=== PATIENT | female | born 2000 | race Caucasian/White ===

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

== ENCOUNTER 2019-10-07 18:33 | Emergency (ER) | payer OTHER ==
[2019-10-07 18:42] VITALS: BMI 26.9
--- NOTE | 2019-10-07 20:01 | PDOC ---
Documentation entered by Jennifer Panchal SCRIBE, acting as scribe for Mamie Nieto MD. Mamie Nieto MD: This documentation has been prepared by the Erik gutierrez Xhesika, SCRIBE, under my direction and personally reviewed by me in its entirety. I confirm that the documentation accurately reflects all work, treatment, procedures, and medical decision making performed by me. Attending Attestation - Resident Resident Name: SudheerdeliocarolaJasonSaul - ED Attending Attestation I have performed the following: I have examined & evaluated the patient, The case was reviewed & discussed with the resident, I agree w/resident's findings & plan, Exceptions are as noted - HPI HPI: 10/07/19 19:38 The patient is a 18y/o F, 20 weeks , , with no PMH who presents to the ED from clinic for D&C. Pt was seen by OBGYN (Dr. Daily) who did a US and was told there was no heart rate and was referred to the ER. Pt denies any vaginal bleeding or discharge. Pt reports abdominal cramping. Allergies: NKDA OBGYN: Dr. Daily - Physicial Exam PE: 10/07/19 19:46 wnwd 18 yo female was referred to ED from urgent care for D and C for demise at 20 weeks head ncat neck supple lungs cta b/l cvs [id number] abdomen no rebound skin warm and dry' extremities no edema,no erythema neuro axox3,ambulatory - Medical Decision Making 10/07/19 20:00 Dr Rivers has been paged 10/07/19 20:21 Dr Fernandez does not do D and E and the patient was referred to [facility] Patient does not have fever or chills ,she does not have nausea, vomiting or vaginal bleeding at this time Impression demise during second trimester Plan we will follow-up at [facility]CEPTION[facility] department Discharge - Discharge Information Problems reviewed: Yes Clinical Impression/Diagnosis: demise Condition: Fair - Follow up/Referral - Patient Discharge Instructions Patient Printed Discharge Instructions: Miscarriage Additional Instructions: You came into the ED for a D&C because of demise. We spoke to your OBGYN Dr. Daily who does not do D&C so you were referred to [facility] [phone]. You had no bleeding, active contractions, or emergent symptoms so you were discharged. If you have any: - vaginal bleeding - contractions - SOB - Chest pain - any emergent sxs. If you think you have an emergency please call for medical help right away. - Post Discharge Activity
--- NOTE | 2019-10-07 20:05 | PDOC ---
History of Present Illness - General Chief Complaint: Pain Stated Complaint: 19 WEEKS , NO HEART BEAT Time Seen by Provider: 10/07/19 19:33 - History of Present Illness Initial Comments: 10/07/19 19:56 18 yo with elective at 15 presents to the ED for D&C. Pt explains that yesterday at her 20 week check up pt was notified by Dr. Daily that their was no heart rate with close cervix. She was then directed to get a D&C. Pt tried to call 2 clinics who stated they will not do it because do not know how long baby had no heart rate. Pt then consulted Dr. Daily who stated that she should come to [facility] for D&C. Pt last check up was 12 weeks were baby was alive. Pt believes she felt baby kicked last week. Pt does have associated symptoms of cramps which has been going on for three weeks, mild swelling of lower ext for 1 week, and some mild back pain for 1 week. Pt denies contractions, any bleeding, or any pain anywhere. Pt denies fevers, chills, SOB, Chest pain, pain with urination or frequency, or any change in bowel movements. PMH: Denies meds: denies PSH: D&E Allergies: NKA Social: No smoking, drugs, or alcohol. Lives with mother Past History - Medical History Allergies/Adverse Reactions: Allergies Allergy/AdvReac Type Severity Reaction Status Date / Time No Known Allergies Allergy Verified 10/07/19 18:42 Home Medications: Ambulatory Orders Cephalexin [Keflex] 500 mg PO BID 7 Days #14 capsule 07/04/19 Doxylamine Succinate/Vit B6 [Melina Rios 10-10 mg Tablet] 2 each PO BID PRN #30 tablet. 07/04/19 COPD: No - Immunization History Immunization Up to Date: Yes - Psycho-Social/Smoking History Smoking Status: No Smoking History: Never smoked Have you smoked in the past 12 months: No Number of Cigarettes Smoked Daily: 0 Information on smoking cessation initiated: Yes - Substance Abuse Hx (Audit-C & DAST Scrn) How often the patient has a drink containing alcohol: Never Score: In Men: 4 or > Positive; In Women: 3 or > Positive: 0 Screen Result (Pos requires Nsg. Audit-10AR): Negative In the last yr the pt used illegal drug/Rx for NonMed reason: No Score: Yes response is considered Positive: 0 Screen Result (Positive result requires Nsg. DAST-10): Negative Review of Systems - Review of Systems Comments:: 10/07/19 20:09 GENERAL/CONSTITUTIONAL: No fever or chills. No weakness. HEAD, EYES, EARS, NOSE AND THROAT: No change in vision. No ear pain or discharge. No sore throat. CARDIOVASCULAR: No chest pain or shortness of breath RESPIRATORY: No cough, wheezing, or hemoptysis. GASTROINTESTINAL: No nausea, vomiting, diarrhea or constipation. GENITOURINARY: No dysuria, frequency, or change in urination. MUSCULOSKELETAL: No joint or muscle swelling or pain. No neck or back pain. SKIN: No rash NEUROLOGIC: No headache, vertigo, loss of consciousness, or change in strength/sensation. ENDOCRINE: No increased thirst. ALLERGIC/IMMUNOLOGIC: No hives or skin allergy. *Physical Exam - Vital Signs Last Vital Signs Temp Pulse Resp BP Pulse Ox 98.8 F 89 19 123/57 L 100 10/07/19 18:39 10/07/19 18:39 10/07/19 18:39 10/07/19 18:39 10/07/19 18:39 - Physical Exam 10/07/19 20:10 GENERAL: Awake, alert, and fully oriented, in no acute distress HEAD: normocephalic atraumatic EYES: PERRLA, EOMI, sclera anicteric, conjunctiva clear ENT: Auricles normal inspection, hearing grossly normal, nares patent, oropharynx clear without exudates. NECK: Normal ROM, supple, no lymphadenopathy, JVD, or masses LUNGS: No distress, speaks full sentences, clear to auscultation bilaterally HEART: Regular rate and rhythm, normal S1 and S2, no murmurs, rubs or gallops, peripheral pulses normal and equal bilaterally. ABDOMEN: Soft, nontender, normoactive bowel sounds. No guarding, no rebound. No masses EXTREMITIES : Normal inspection, Normal range of motion, Mild edema up to ankles. No clubbing or cyanosis. NEUROLOGICAL: Cranial nerves II through XII grossly intact. Normal speech, normal gait, no focal sensorimotor deficits SKIN: Warm, Dry, normal turgor, no rashes or lesions noted 5 Medical Decision Making - Medical Decision Making 10/07/19 20:29 18 yo female coming in for D&C due to demise at around 20 weeks. Called pt OBGYN who Dr. Ocampo who stated that pt misunderstood and that she needed to go to a tertiary care center for D&C at 20 weeks. Pt was referred to [facility]. Pt was also told if they do not do it to go to [facility]. Discharge - Discharge Information Problems reviewed: Yes Clinical Impression/Diagnosis: demise Condition: Fair - Follow up/Referral - Patient Discharge Instructions Patient Printed Discharge Instructions: Miscarriage Additional Instructions: You came into the ED for a D&C because of demise. We spoke to your OBGYN Dr. Daily who does not do D&C so you were referred to [facility] [phone]. You had no bleeding, active contractions, or emergent symptoms so you were discharged. If you have any: - vaginal bleeding - contractions - SOB - Chest pain - any emergent sxs. If you think you have an emergency please call for medical help right away. - Post Discharge Activity
[2019-10-07 20:19] VITALS: BP 89/58; PULSE 79; TEMP 98.7
== END 2019-10-07 20:33 | disposition home or self-care (01) ==
LOC: JER 18:33
DX: O36.4XX0 Maternal care for intrauterine death, not applicable or unspecified (principal); Z3A.20 20 weeks gestation of pregnancy
CPT/HCPCS: 99283-25

== ENCOUNTER 2019-11-05 16:40 | Emergency (ER) | payer OTHER ==
[2019-11-05 16:44] VITALS: BP 129/95; PULSE 81; TEMP 98.2; BMI 27.3
--- NOTE | 2019-11-05 16:59 | PDOC ---
Attending Attestation - Resident Resident Name: Emily Polanco - ED Attending Attestation I have performed the following: I have examined & evaluated the patient, The case was reviewed & discussed with the resident, I agree w/resident's findings & plan, Exceptions are as noted - HPI HPI: 11/14/19 10:52 Nausea and vomiting since drinking binge last night. No abdominal pain or diarrhea. No fever/chills. Past medical history is negative for significant GI disease or surgery. - Physicial Exam PE: 11/14/19 10:53 Vital signs are normal. There is no fever Abdomen is nondistended. Bowel sounds are normal. Completely soft, nontender to palpation despite vigorous examination of all 4 quadrants. No CVAT. No pallor or icterus. HEENT normal Neck supple without any mass or nodes Lungs clear with full breath sounds bilaterally. No chest wall or rib cage tenderness or deformity CV S1-S2 normal without murmur rub or gallop pulses full and symmetric no JVD or edema no bruits regular 80/min Extremities no CCE Skin clear, no rash, adequate turgor, mucous membranes 11/14/19 10:55 CBC with a white count of 18.4, normal H&H. Chemistries show small elevations of AST and ALT, possibly from consistent overuse of alcohol. Glucose is mildly elevated as well, but the remainder of the chemistry panel is negative. Urinalysis is clear except for 2+ protein. test is negative. 11/14/19 10:56 - Medical Decision Making 11/14/19 10:57 Assessment: Gastritis versus gastroenteritis. Although the white count is elevated, there is no tenderness on abdominal exam, and the likelihood of a serious intra-abdominal infection is minimal Plan: Patient responded well to intravenous hydration and Zofran. Nausea subsided. No further vomiting. Taking p.o. fluids well. Discharged with instructions to return to ER if there is abdominal pain or persistent vomiting. Otherwise abstain from alcohol and use Zofran as needed for nausea. Follow-up with primary physician. Fully ambulatory and in no pain or other distress at discharge Discharge - Discharge Information Problems reviewed: Yes Clinical Impression/Diagnosis: Nausea & vomiting Qualifiers: Vomiting type: unspecified Vomiting Intractability: non-intractable Qualified Code(s): R11.2 - Nausea with vomiting, unspecified Condition: Stable Disposition: HOME - Additional Discharge Information Prescriptions: Ondansetron [Zofran *Odt*] 4 mg SL Q8H PRN #12 od.tablet PRN Reason: Nausea And/Or Vomiting - Follow up/Referral - Patient Discharge Instructions Patient Printed Discharge Instructions: DI for Alcoholic Gastritis Additional Instructions: Discharge Instructions: You were seen in the emergency department for vomiting. Your blood tests did not show any concerning abnormalities. Home Care: - You have been prescribed a nausea medication called Zofran (ondansetron). This may be taken every 8 hours as needed for continued nausea and/or vomiting. - Make sure you are drinking plenty of fluids. It may be easier to take frequent small sips of water rather than drink a whole glass at once. A good way to tell is if you are urinating at least every few hours - If you are not hungry, it is OK if you do not eat as long as you are staying well hydrated - Avoid alcohol, caffeine, spicy food, greasy food, dairy products, or anything else you feel upsets your stomach - If you are not feeling better within a few days, call your regular doctor for follow up - Seek immediate care if you have worsening symptoms, you are unable to keep down liquids, you become dehydrated, you have severe abdominal pain, or you have any other medical emergency. - Post Discharge Activity
[2019-11-05] MEDS ORDERED: SODIUM CHLORIDE 0.9% 500 ML INFUS.BAG IV ONE (17:24)
[2019-11-05] MEDS ORDERED: FAMOTIDINE 20 MG/50 ML IVPB 20 MG/50 ML MG IVPB ONE ×2 (17:24→17:33)
[2019-11-05] MEDS ORDERED: ONDANSETRON 4 MG/2 ML VIAL IVPUSH ONE (17:24)
--- NOTE | 2019-11-05 17:31 | PDOC ---
History of Present Illness - General Chief Complaint: Nausea/Vomiting Stated Complaint: NAUSEA, VOMITING, ABD PAIN Time Seen by Provider: 11/05/19 16:41 - History of Present Illness Initial Comments: Amy Welsh is a 18yo woman with a history of recent miscarriage (s/p D/C 1mo ago) who presents with multiple episodes of vomiting today. She states that she had several shots of whiskey with friends yesterday, and she woke up vomiting this morning. She says that she has thrown up too many times to count today. She has tried to eat some bread and drink water, but everything she takes in immediately makes her vomit. The emesis is nonbilious, but she has seen a few specs of blood. She denies fever, chills, cough, history of GI illness or ulcers, or other recent symptoms. She does not believe she could be again at this time. Ms Welsh does endorse smoking marijuana. Past History - Medical History Allergies/Adverse Reactions: Allergies Allergy/AdvReac Type Severity Reaction Status Date / Time No Known Allergies Allergy Verified 11/05/19 16:40 Home Medications: Ambulatory Orders NK [No Known Home Medication] 11/05/19 COPD: No - Reproductive History Is Patient Now?: (unk) (#): 2 Para: 0 Therapeutic (s) & number: Yes (1) - Immunization History Immunization Up to Date: Yes - Psycho-Social/Smoking History Smoking Status: No Smoking History: Never smoked Have you smoked in the past 12 months: No Number of Cigarettes Smoked Daily: 0 Information on smoking cessation initiated: No - Substance Abuse Hx (Audit-C & DAST Scrn) How often the patient has a drink containing alcohol: Monthly or less Score: In Men: 4 or > Positive; In Women: 3 or > Positive: 1 Screen Result (Pos requires Nsg. Audit-10AR): Negative In the last yr the pt used illegal drug/Rx for NonMed reason: No Score: Yes response is considered Positive: 0 Screen Result (Positive result requires Nsg. DAST-10): Negative Review of Systems - Review of Systems Comments:: General: No fevers, no chills, no weight or appetite change, no malaise HEENT: No changes in vision, no changes in hearing, no congestion, no sore throat CV: No chest pain, no palpitations, no LE edema Pulm: No SOB, no cough, no wheezing GI: See HPI. No change in bowel habits, no melena : No frequency, no urgency, no dysuria Musc: No back pain, no joint swelling, no recent injury Skin: No rash, no lesions, no erythema Endo: No excessive thirst, no heat/cold intolerance Heme: No unusual bruising or bleeding, no swollen glands Neuro: No syncope, no numbness/tingling, no focal weakness Vasc: No claudication Psych: No recent change in mood, no SI or HI *Physical Exam - Vital Signs Last Vital Signs Temp Pulse Resp BP Pulse Ox 98.2 F 81 18 129/95 100 11/05/19 16:40 11/05/19 16:40 11/05/19 16:40 11/05/19 16:40 11/05/19 16:40 - Physical Exam General: Uncomfortable, in no acute distress HEENT: Atraumatic, PERRL, EOMI, MMM, voice normal, normal neck ROM Cards: RRR, no murmur appreciated Pulm: Comfortable on room air, clear to auscultation bilaterally Abd: Soft, nondistended. Minimal TTP in lower abdomen. Ext: Atraumatic. No LE edema. ROM intact. WWP Skin: Normal color, no rashes or lesions Neuro: A&Ox3, CN grossly intact, normal speech, motor/sensory grossly intact and symmetric Psych: Mood appropriate to situation ED Treatment Course - LABORATORY CBC & Chemistry Diagram: 11/05/19 17:30 11/05/19 17:30 Medical Decision Making - Medical Decision Making 11/05/19 18:00 Amy Welsh is a 18yo woman with a history of recent miscarriage (s/p D/C 1mo ago) who presents with multiple episodes of vomiting today after drinking whiskey and smoking marijuana last night. - Alcoholic or viral gastritis, gastroenteritis, pancreatitis, hyperemesis cannabanoid, . Less likely appendicitis or gallbladder pathology given no ttp on exam - IVF, pepcid, zofran - CBC, CMP, lipase, preg 11/05/19 18:08 - Feeling improved - Labs notable for leukocytosis to 18. Otherwise unremarkable. Urine preg negative. Glucose 144, very unlikely DKA - Lipase pending - Will PO challenge when lipase resulted 11/05/19 18:52 - Lipase normal, will PO challenge 11/05/19 19:02 - Tolerating PO - Will d/c home. Discussed home care, return precautions in detail. Discussed with Dr Niki Polanco PGY3 Discharge - Discharge Information Problems reviewed: Yes Clinical Impression/Diagnosis: Nausea & vomiting Qualifiers: Vomiting type: unspecified Vomiting Intractability: non-intractable Qualified Code(s): R11.2 - Nausea with vomiting, unspecified Condition: Stable - Admission No - Follow up/Referral - Patient Discharge Instructions Patient Printed Discharge Instructions: DI for Alcoholic Gastritis Additional Instructions: Discharge Instructions: You were seen in the emergency department for vomiting. Your blood tests did not show any concerning abnormalities. Home Care: - You have been prescribed a nausea medication called Zofran (ondansetron). This may be taken every 8 hours as needed for continued nausea and/or vomiting. - Make sure you are drinking plenty of fluids. It may be easier to take frequent small sips of water rather than drink a whole glass at once. A good way to tell is if you are urinating at least every few hours - If you are not hungry, it is OK if you do not eat as long as you are staying well hydrated - Avoid alcohol, caffeine, spicy food, greasy food, dairy products, or anything else you feel upsets your stomach - If you are not feeling better within a few days, call your regular doctor for follow up - Seek immediate care if you have worsening symptoms, you are unable to keep down liquids, you become dehydrated, you have severe abdominal pain, or you have any other medical emergency. - Post Discharge Activity
[2019-11-05] MEDS ORDERED: ONDANSETRON 4 MG/2 ML VIAL ONE (17:34)
[2019-11-05 17:47] LABS: HEMATOCRIT 43.4 % (32.4-45.2); HEMOGLOBIN 14.4 GM/dl (10.7-15.3); MCH 28.2 pg (25.7-33.7); MCHC 33.2 g/dl (32.0-36.0); MEAN PLT VOLUME 8.5 fl (7.5-11.1); PLATELET COUNT 493 K/MM3 (134-434); RBC 5.11 M/mm3 (3.60-5.2); RDW 12.6 % (11.6-15.6); WHITE BLOOD COUNT 18.4 K/mm3 (4.0-10.8)
[2019-11-05 18:00] LABS: ALBUMIN 4.3 g/dl (3.4-5.0); BILIRUBIN,TOTAL 0.3 mg/dl (0.2-1); CALCIUM 9.3 mg/dl (8.5-10); CREATININE 0.6 mg/dl (0.55-1.3); POTASSIUM 3.8 mmol/L (3.5-5.1); TOT PROT 8.2 g/dl (6.4-8.2)
[2019-11-05 18:09] LABS: URIC ACID CRYSTALS 1+ /hpf (NONE SEEN)
[2019-11-05 18:48] LABS: PLATELET ESTIMATE SLT INCREASE
== END 2019-11-05 19:15 | disposition home or self-care (01) ==
LOC: FER 16:40
PROC: 3E033NZ Introduction of Analgesics, Hypnotics, Sedatives into Peripheral Vein, Percutaneous Approach (ICD-10-PCS; principal; 2019-11-05)
PROC: 3E033GC Introduction of Other Therapeutic Substance into Peripheral Vein, Percutaneous Approach (ICD-10-PCS; 2019-11-05)
DX: R11.2 Nausea with vomiting, unspecified (principal)
CPT/HCPCS: 36415; 80053; 81003; 81015; 83690; 84702; 84703; 85025; 99285-25